=== PATIENT | male | born 1945 | race Hispanic/Latino ===

== ENCOUNTER 2020-08-23 12:33 | Emergency (ER) | payer MEDICARE, SELFPAY ==
[2020-08-23 12:41] VITALS: BP 194/96; PULSE 85; RESP 16; TEMP 36.8; O2SAT 97; BMI 19.6
--- NOTE | 2020-08-23 12:46 | PC.NURSE ---
pt arrived to ER with rash all over his body. hands are weepy, red and peeling. pt did arrive to ER with gloves on his hands. using prescription creams and cortisporin pills. rash is all over his trunk and extremities. reports it is itchy. lower extremities appear swollen with the rash. Provider, Laura at bedside
--- NOTE | 2020-08-23 12:50 | ED_ITS ---
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 Patient states he has been seen in the [facility] Emergency Department. He states the skin condition occasionally gets better and then occasionally worsens. He has been seen by chief supply chain officer, he applies triamcinolone cream to the areas. He was prescribed cyclosporine but does not take this as he does not like the side effects. Patient just finished a round of Keflex , last pill was yesterday. It appears that he had been on prednisone earlier in the month. He states usually the antibiotics improve however, they have not had much improvement after this last dose of Keflex. Patient denies any history of diabetes or other health problems. He denies any fevers, chest pain, shortness of breath, syncope, abdominal pain, nausea, vomiting, diarrhea, or any other concerns. Denies any history of diabetes or other medical issues. Related Data Previous Rx's Medication Instructions Recorded doxycycline hyclate 100 mg PO BID 7 Days #14 cap 08/23/20 prednisone 40 mg PO DAILY 6 Days #9 tab 08/23/20 Review of Systems <JORI Saravia - Last Filed: 08/23/20 19:50> Review of Systems Narrative: REVIEW OF SYSTEMS: GENERAL: Denies fever or chills. HENT: No head trauma. CARDIOVASCULAR: No chest pain or syncope. RESPIRATORY: No shortness of breath or cough. GASTROINTESTINAL: No nausea, vomiting, diarrhea, or constipation. GENITOURINARY: No flank pain or dysuria. MUSCULOSKELETAL: No pain, weakness, or deformities. INTEGUMENTARY: Reports rash to arms, back, and legs, see HPI. NEURO: No numbness or tingling. Patient History <JORI Saravia - Last Filed: 08/23/20 19:50> Medical History No significant medical problems Social History Smoking Status: Current every day smoker Smoking Status: Current every day smoker tobacco type: cigarettes Substance Use Type: does not use Exam <JORI Saravia - Last Filed: 08/23/20 19:50> Initial Vital Signs Initial Vital Signs: Vital Signs Temperature 98.2 F 08/23/20 12:41 Pulse Rate 85 08/23/20 12:41 Respiratory Rate 16 08/23/20 12:41 Blood Pressure 194/96 H 08/23/20 12:41 Pulse Oximetry 97 08/23/20 12:41 PHYSICAL EXAMINATION: GENERAL: Well groomed, alert, and cooperative. . HENT: Normocephalic, atraumatic. No rash to face, facial features symmetrical. EYES: Conjunctiva pink, sclera white, no periorbital swelling. CHEST: Normal to inspection and without deformities. CARDIOVASCULAR: S1 and S2 sounds normal. Regular rate and rhythm, no murmurs, clicks, or bruits. No pedal edema. RESPIRATORY: Normal respiratory rate, trachea midline, airway patent. No stridor, nasal flaring or accessory muscle use. Lungs are clear in all calloway without wheeze, rhonchi, or crackles. MUSCULOSKELETAL: Significant patches of eczema noted to arms, hands, back, and lower legs. Excoriation noted. Small patches of increased erythema noted to the underside of arms. Small amount of serosanguineous oozing to lateral aspect of ankles most likely due to excoriation. Patient seen scratching skin. Flaking noted to hands and around nails. EXTREMITIES: CMS intact. Moves all extremities. Radial and pedal pulses 2+ and equal bilaterally. SKIN: Warm, dry, soft, appropriate color for ethnicity. No lesions, rashes, or wounds. NEURO: Alert and Oriented X 3. Good coordination. No ataxia, or sensory deficits, or cognitive issues. PSYCH: Appropriate affect and mood. <Cristela Posey DO - Last Filed: 08/28/20 08:02> Initial Vital Signs Initial Vital Signs: Vital Signs Temperature 98.2 F 08/23/20 12:41 Pulse Rate 85 08/23/20 12:41 Respiratory Rate 16 08/23/20 12:41 Blood Pressure 194/96 H 08/23/20 12:41 Pulse Oximetry 97 08/23/20 12:41 Course <JORI Saravia - Last Filed: 08/23/20 19:50> Consultations Consultation #1: Patient staffed with Dr. Posey discussed history and plan of care. Vital Signs Vital signs: Vital Signs - 8 hr 08/23/20 12:41 08/23/20 13:00 08/23/20 13:28 Temperature 98.2 F 97.4 F L Pulse Rate 85 85 79 Respiratory Rate 16 Blood Pressure 194/96 H 188/88 H Pulse Oximetry 97 100 100 <Cristela Posey DO - Last Filed: 08/28/20 08:02> Vital Signs Vital signs: Vital Signs - 8 hr 08/23/20 12:41 08/23/20 13:00 08/23/20 13:28 Temperature 98.2 F 97.4 F L Pulse Rate 85 85 79 Respiratory Rate 16 Blood Pressure 194/96 H 188/88 H Pulse Oximetry 97 100 100 MDM - Skin/Abscess/Foreign Bdy <JORI Saravia - Last Filed: 08/23/20 19:50> Medical Records Attestation: I reviewed the patient's medical records. Lab Data Attestation: I reviewed the patient's lab results. MDM Narrative Medical decision making narrative: 75-year-old male presenting to the ED for re- evaluation of his significant rash. Appears to be atopic dermatitis. It appears that patient was started on immune modulators such as cyclosporine however, he has not been taking this due to side effects as he states ?I can't breath wanted to this medication and makes me dizzy ?. Has been ongoing for the past month, states it is worse intermittently. Has seen a chief supply chain officer, next appointment in 3 days. I suspect this is most likely significant atopic dermatitis. Lower suspicion of cellulitis however there are some areas that are appear more erythematous. Patient was given prednisone to help with symptoms, he was also given doxycycline instructed to use this approximately a week later if symptoms do not resolve or get worse. He was however encouraged to follow up with Dermatology for further management. Patient was given a referral to a local chief supply chain officer to call if he prefers to have another opinion via chief supply chain officer. He appears nontoxic, is afebrile non tachycardic alert and awake, thus less concern for severe etiology such as Gomez-Dru syndrome. Return precautions given for new or worsening symptoms. He agrees to plan of care verbalized understanding. Discharge Plan Departure Patient Disposition: Home Clinical Impression: Atopic dermatitis Qualifiers: Atopic dermatitis type: unspecified Qualified Code(s): L20.9 - Atopic dermatitis, unspecified Instructions: DI for Atopic Dermatitis-Adult Activity Restrictions/Additional Instructions: Thank you for entrusting me with your care today. As discussed, it appears to have severe atopic dermatitis. I prescribed you to medications. Please take the prednisone 1st. Take 2 pills for 3 days and 1 pill for 3 days. If your skin does not improve then start the doxycycline. Please follow-up with a chief supply chain officer, if you would like to see a different chief supply chain officer, I have included a referral to another one below. Return emergency department for any new or worsening symptoms. Prescriptions: New prednisone 20 mg tablet 40 mg PO DAILY 6 Days Qty: 9 RF: 0 doxycycline hyclate 100 mg capsule 100 mg PO BID 7 Days Qty: 14 RF: 0 Referrals: Brandyn Muse MD [Non-Staff] - <Cristela Posey DO - Last Filed: 08/28/20 08:02> Cosign ED Attending Cosignature Attestation: I was immediately available in the department for consultation. This documentation has been reviewed and I agree with assessment and plan, case discussed with myself. Patient has seen dermatology and primary care and was even offered/started on cyclosporine but stopped due to side effects. Discussed that unlikely for us to find a significantly different diagnosis from Dermatology. Patient has been on prednisone as well as antibiotics and may have an underlying infection on top of his skin condition. Supervised by Cristela Posey DO
[2020-08-23 13:00] VITALS: PULSE 85; O2SAT 100
[2020-08-23 13:28] VITALS: BP 188/88; PULSE 79; TEMP 36.3; O2SAT 100
== END 2020-08-23 13:40 | disposition home or self-care (01) ==
LOC: ED 13:22
PROVIDERS: Emergency Provider Nurse Practitioner
DX: L20.9 Atopic dermatitis, unspecified (principal); Z57.5 Occupational exposure to toxic agents in other industries
CPT/HCPCS: 99281